=== PATIENT | female | born 1945 | race Caucasian/White ===

== ENCOUNTER → 2017-03-19 | Outpatient (CLI) | payer OTHER | LOC: MRI 12:43 | DX: M77.02 Medial epicondylitis, left elbow (principal) ==

== ENCOUNTER → 2017-12-28 | Outpatient (CLI) | payer OTHER | LOC: MRI 13:37 | DX: M25.462 Effusion, left knee (principal); M19.90 Unspecified osteoarthritis, unspecified site; M25.78 Osteophyte, vertebrae; M65.9 Synovitis and tenosynovitis, unspecified; M19.012 Primary osteoarthritis, left shoulder ==